=== PATIENT | female | born 1990 | race Two or more races ===

== ENCOUNTER 2024-12-07 22:37 | Emergency (ER) | payer MEDICAID, SELFPAY ==
[2024-12-07 22:39] VITALS: BMI 29.0
[2024-12-07 23:56] VITALS: BP 134/75; PULSE 100; RESP 20; TEMP 37.3; O2SAT 99
--- NOTE | 2024-12-08 00:15 | PD.EDRME ---
Rapid Medical Screening Exam RME Arrival date/time: 12/07/24 22:37 34F with history of breast cancer w/ mets to stomach and liver presents to ED with several days of ab/flank pain, hematuria/dysuria, and bloody N/V. Patient's oncologists are in [place] as she recently moved to [place] from there. Chief Complaint: Abdominal Pain Vital signs: Vital Signs Temperature 99.1 F 12/07/24 23:56 Pulse Rate 100 12/07/24 23:56 Respiratory Rate 20 12/07/24 23:56 Blood Pressure 134/75 H 12/07/24 23:56 Pulse Oximetry (%) 99 12/07/24 23:56 Oxygen Delivery Method Room Air 12/07/24 23:56
[2024-12-08 00:22] VITALS: BP 113/72; TEMP 36.8; O2SAT 99
--- NOTE | 2024-12-08 00:39 | EDNOTE_ITS ---
ED Abdominal Pain RME/HPI General Chief Complaint: Abdominal Pain Stated complaint: VOMTIING AND BLOOD IN URINE, HX STOMACH CA Time seen by provider: 12/08/24 00:37 Arrival date/time: 12/07/24 22:37 RME / HPI RME / HPI narrative: 12/07/24 22:37 34F with history of breast cancer w/ mets to stomach and liver presents to ED with several days of ab/flank pain, hematuria/dysuria, and bloody N/V. Patient's oncologists are in [place] as she recently moved to [place] from there. --------- Dr. Garza?s Main ED Evaluation: 34yo female with a history of breast CA w/ mets to the stomach and ovaries s/p hysterectomy on chemotherapy, PE 2 years ago presents to the ED for a chief complaint of hematemesis. Patient states she had 7-8 episodes of hematemesis at home since this morning, describing it as blood clots. Patient reports associated mild hematuria (is unsure if it's due to wiping too hard or not), shortness of breath, generalized weakness, lower abdominal pain, and lower back pain. Patient currently rates her pain a 9 out of 10 in severity. Patient denies any fever, chills, sweating, diarrhea, constipation or any otehr associated symptoms. Oncologist is at [facility]. Related Data Allergies Allergy/AdvReac Type Severity Reaction Status Date / Time iodine Allergy Verified 12/08/24 00:59 ketorolac (From Toradol) Allergy Verified 12/08/24 00:59 latex Allergy Verified 12/08/24 00:59 metoclopramide (From Reglan) Allergy Verified 12/08/24 01:01 ondansetron Allergy Verified 12/08/24 00:59 tramadol Allergy Verified 12/08/24 00:59 Review of Systems Review of Systems Systems Reviewed: All systems reviewed, normal except as documented Past Medical History Social History SMOKING STATUS: Never smoker ED Exam Narrative Physical exam: GENERAL APPEARANCE: alert and oriented x 4, well-developed, well-nourished, no acute distress VITALS: All vitals were reviewed and the pulse ox is 99% on room air, which is normal according to my interpretation. HEENT: Normocephalic, atraumatic; pupils equal, round, reactive to light; EOMI; mucous membranes pink, moist; oropharynx clear NECK: Supple LUNGS: CTABL; no wheezes, no rales, no rhonchi HEART: Regular rate, regular rhythm; normal S1, S2; no murmurs ABDOMEN: non distended; normal BS; soft, no tenderness, no guarding, no rebound; no masses, no organomegaly, no hernia BACK: no CVA tenderness EXTREMITIES: atraumatic; no edema NEUROLOGIC: awake; alert and oriented x4; cranial nerves II-XII grossly intact; no focal sensory or motor deficits PSYCHIATRIC: appropriate mood and affect SKIN: warm, dry, normal color; no rashes Course Quality Measures none Orders Category Date Time Status CT Screening NOW Care 12/08/24 01:20 Active Director Oracle Database NOW Care 12/08/24 01:16 Active Continuous Pulse Oximetry NOW Care 12/08/24 01:16 Active Insert IV NOW Care 12/08/24 00:[address] angio chest abdomen pelvis Stat Exams 12/08/24 01:19 Taken Blood Culture (Lab) Stat Lab 12/08/24 00:33 Received CBC Stat Lab 12/08/24 00:33 Completed CMP [Comprehensive Metabolic Panel] Stat Lab 12/08/24 00:33 Completed HCG Qualitative,Urine Stat Lab 12/08/24 00:14 Ordered Lactate (Lactic Acid) Stat Lab 12/08/24 00:33 Completed Lipase Stat Lab 12/08/24 00:33 Completed Procalcitonin Stat Lab 12/08/24 00:33 Completed UA [Urinalysis] Stat Lab 12/08/24 00:14 Ordered Urine Culture Stat Lab 12/08/24 00:14 Ordered DiphenhydrAMINE INJ [Benadryl Inj] Med 12/08/24 01:00 Discontinued 25 mg IVP X1 ONE MethylPREDNISolone. [SoluMEDROL Inj] Med 12/08/24 01:14 Discontinued 40 mg IVP X1 ONE MethylPREDNISolone.* [SoluMEDROL Inj] Med 12/08/24 01:17 Discontinued 125 mg IVP X1 ONE Morphine Inj Med 12/08/24 02:20 Discontinued 5 mg IVP Q30M PRN Morphine Inj Med 12/08/24 00:14 Discontinued 5 mg IVP X1 ONE Ondansetron Inj [Zofran Inj] Med 12/08/24 00:14 Discontinued 4 mg IV X1 ONE Pantoprazole Inj [Protonix Inj] Med 12/08/24 00:14 Discontinued 40 mg IVP X1 ONE Pantoprazole Inj [Protonix Inj] Med 12/08/24 01:14 Discontinued 40 mg IVP X1 ONE Pantoprazole/Ns 80Mg IV Premix [Protonix/NS 80mg IV Med 12/08/24 01:16 D iscontinued Premix] 80 mg in 100 ml IV X1 Pantoprazole/Ns 80Mg IV Premix [Protonix/NS 80mg IV Med 12/08/24 03:49 Active Premix] 80 mg in 100 ml IV X1 Sodium Chloride 0.9% 1000 ml [Ns] 1,000 ml Med 12/08/24 00:14 Discontinued IV 999 mls/hr Vital Signs Vital signs: Vital Signs Temperature 99.1 F 12/07/24 23:56 Pulse Rate 100 12/07/24 23:56 Respiratory Rate 20 12/07/24 23:56 Blood Pressure 134/75 H 12/07/24 23:56 Pulse Oximetry (%) 99 12/07/24 23:56 Oxygen Delivery Method Room Air 12/07/24 23:56 Abdominal Pain MDM MDM Narrative MDM Narrative:: Scribe Attestation: 12/08/24 - Kimberly Gardner am scribing for and in the presence of Dr. Garza. Patient came in with her own IV already in place as prescribed by her oncologist, . Patient states she receives IV fluids at home on a regular basis due to her being dehydrated 2/2 chemotherapy. Solumedrol and Benadryl ordered due to the patient allergic to IV contrast. Of note, patient has not had any emetic episodes here in the ED. 0400: Patient is being treated for her pain. She is currently on a Protonix drip. Patient gave multiple staff members different stories. When asked, patient was unable to provide the name of her oncologist. Per registration staff, patient provided the name of a PCP, but patient denied that. She got up and left. Patient data External records reviewed:: [facility] previous records (Per chart review, patient has no previous ED visits or admissions to this facility.) Clinical information provided by:: patient Social determinants that could affect healthcare access:: none Patient has the following chronic illnesses:: breast CA w/ mets to the stomach and ovaries, PE 2 years ago How is presenting disease/condition affected by chronic disease/condition?: caused by Evaluation data The following diagnostics were reviewed and interpreted by me:: lab results and radiology exam(s) Lab and/or radiology exams considered but not ordered:: none Interpretation Summary: WBC count is normal, HnH is 9.4/28.8, Electrolytes are normal, Lipase is normal, Lactic Acid is normal, Procalcitonin is normal, according to my interpretation. Teler[place] Preliminary Report Draft Patient: JAMAL SAINI [facility] Record#: [id number] Birthdate: 1990 Age/Sex: 34 / F Location: [facility] Attending Dr: Ordering Physician: Date of Service: Procedure(s): Accession Number(s): cc: ~ CT angiogram of the chest, abdomen and pelvis with intravenous contrast (axial images with coronal and sagittal reconstructions) Clinical history: Vomiting blood Findings: There is no filling defect in the pulmonary artery divisions to suggest pulmonary thromboembolism. No pericardial effusion is seen. The heart size is normal. Main pulmonary artery caliber is normal. Mild mediastinal adenopathy. No aortic aneurysm or dissection. The lungs are clear. No pleural effusion. No pneumothorax. No acute osseous process. The chest wall is unremarkable. Right mastectomy. Inferior vena cava filter. Liver is enlarged, 21 cm long. Spleen is enlarged, 12.6 cm long. Gallbladder, adrenal glands, pancreas and kidneys are unremarkable. The appendix is normal, best seen on image 202. The urinary bladder is normal. There is no adnexal cyst or mass. No free intraperitoneal air or fluid. Bowel caliber is normal. The abdominal wall is unremarkable. The stomach is nondistended and wall thickening cannot be excluded. Celiac, superior and inferior mesenteric, bilateral renal and iliac arteries are unremarkable. No gastrointestinal hemorrhage is identified. Impression: Normal arteriogram No hemorrhage is identified. Cannot exclude gastritis. Mild hepatosplenomegaly. Report Electronically Signed By: Pasquale Cardoza 12/08/2024 3:42:28 AM Medications / Prescriptions Medications or Prescriptions considered but not ordered:: none Medication administrations:: Medication Administration History Pantoprazole Sodium (Protonix/Ns 80mg Iv Premix) 80 mg in 100 mls @ 10 mls/hr IV X1 ONE Stop: 12/08/24 13:48 Last Admin: 12/08/24 04:39 Dose: 10 mls/hr Documented By: TERE Discontinued Medications Diphenhydramine HCl (Diphenhydramine Inj 50 Mg/Ml Vial) 25 mg IVP X1 ONE Stop: 12/08/24 01:01 Last Admin: 12/08/24 01:55 Dose: 25 mg Documented By: TERE Sodium Chloride (Ns) 1,000 mls @ 999 mls/hr IV .Q1H1M ONE Stop: 12/08/24 01:14 Last Admin: 12/08/24 02:20 Dose: 999 mls/hr Documented By: TERE Pantoprazole Sodium (Protonix/Ns 80mg Iv Premix) 80 mg in 100 mls @ 400 mls/hr IV X1 ONE Stop: 12/08/24 01:30 Last Admin: 12/08/24 04:17 Dose: Not Given Documented By: TERE Non-Admin Reason: Duplicate Medication on eMAR Methylprednisolone Sodium Succinate (Methylprednisolone Sod Succ 40 Mg Vial) 40 mg IVP X1 ONE Stop: 12/08/24 01:15 Last Admin: 12/08/24 02:37 Dose: Not Given Documented By: TERE Non-Admin Reason: Duplicate Medication on eMAR Methylprednisolone Sodium Succinate (Methylprednisolone Sod Succ 62.5 Mg/Ml 2ml Vial) 125 mg IVP X1 ONE Stop: 12/08/24 01:18 Last Admin: 12/08/24 02:15 Dose: 125 mg Documented By: TERE Morphine Sulfate (Morphine Sulf Inj 10 Mg/Ml Vial) 5 mg IVP X1 ONE Stop: 12/08/24 00:15 Last Admin: 12/08/24 01:56 Dose: 5 mg Documented By: TERE Morphine Sulfate (Morphine Sulf Inj 10 Mg/Ml Vial) 5 mg IVP Q30M PRN PRN Reason: PAIN Last Admin: 12/08/24 04:37 Dose: 5 mg Documented By: Admin: 12/08/24 03:37 Dose: 5 mg Documented By: Admin: 12/08/24 02:52 Dose: 5 mg Documented By: TERE Ondansetron HCl (Ondansetron Inj 2 Mg/Ml Inj 2 Ml) 4 mg IV X1 ONE; Protocol Stop: 12/08/24 00:15 Last Admin: 12/08/24 02:33 Dose: 4 mg Documented By: TERE Pantoprazole Sodium (Pantoprazole Inj 40 Mg Vial) 40 mg IVP X1 ONE Stop: 12/08/24 00:15 Last Admin: 12/08/24 01:58 Dose: 40 mg Documented By: TERE Pantoprazole Sodium (Pantoprazole Inj 40 Mg Vial) 40 mg IVP X1 ONE Stop: 12/08/24 01:15 Last Admin: 12/08/24 02:00 Dose: 40 mg Documented By: TERE see above Consultations Consultation(s) initiated? (list below): No Diagnosis Differential diagnosis abdominal pain: other (GI bleed, dehydration, electrolyte abnormality, anemia) Most likely diagnosis given after review of the tests above:: eloped Admission Indicated Admission indicated?: not indicated Admission Request Was there a request for admission?: No Disposition Plan Disposition Plan: other (specify) (Patient eloped. ) Discharge Plan Plan Patient Disposition: Elopement Prescriptions/Referrals Referrals: Anastasia Sanchez FNP [Primary Care Provider] - In 1 week Problem List Clinical Impression: Vomiting Patient/Caregiver Discharge Instructions Print Language: [place]
[2024-12-08 00:53] LABS: Lactate (Lactic Acid) 1.7 mMol/L (0.4-2.0)
[2024-12-08 01:02] VITALS: BP 118/77; RESP 18; O2SAT 98
[2024-12-08 01:11] LABS: Basophils % (Auto) 1 % (0-2.5); Eosinophils % (Auto) 0 % (0-10); Hematocrit 28.8 % (36.0-46.0); Hemoglobin 9.4 g/dL (12.0-16.0); Immature Granulocytes % (Auto) 1 % (0-0); Immature Granulocytes Auto 0.04 Thou/mm3 (0.00-0.00); Lymphocytes # (Auto) 1.5 Thou/mm3 (1.0-4.8); Lymphocytes % (Auto) 21 % (10-50); Mean Corpuscular HGB Conc 32.6 g/dl (31.0-37.0); Mean Corpuscular Hemoglobin 23.9 pg (25.0-35.0); Mean Corpuscular Volume 73 fL (80-100); Monocytes # (Auto) 0.6 Thou/mm3 (0.0-0.8); Monocytes % (Auto) 9 % (0-12); Neutrophils # (Auto) 4.9 Thou/mm3 (1.8-7.7); Neutrophils % (Auto) 69 % (37-80); Nucleated Red Blood Cell % 0 /100 WBC (0); Platelet Count 247 Thou/mm3 (140-440); RDW Standard Deviation 39.8 fL (36.4-46.3); Red Blood Count 3.93 Miln/mm3 (4.00-5.20); White Blood Count 7.1 Thou/mm3 (3.6-11.0)
--- NOTE | 2024-12-08 01:19 | XR_ITS ---
Examination: CTA chest, with intravenous contrast. CTA abdomen, with intravenous contrast. CTA pelvis, with intravenous contrast. 2-D sagittal and coronal reconstructions. 3-D reconstructions. Date and time of exam: December 08, 2024 at 0226 hours INDICATIONS: Ovarian carcinoma diagnosis, chest pain vomiting abdominal pain beginning 3 days ago CTDI vol (mgy) 13.4 DLP (MGycm) 961 Technique: Multiple CTA images, 2.0 mm slice thickness, obtained chest, abdomen, pelvis, with the high-resolution 64 slice scanner. 100 cc Isovue 370 is administered intravenously. Sagittal and coronal 2-D reconstructions are obtained. 3-D reconstructions, angiographic images are obtained. 3-D postprocessing, including vascular maximum intensity projections. Low dose protocols were performed. One or more of the following dose reduction techniques were used; automated exposure control, adjustment of the mA and/or KV according to patient size, use of iterative reconstruction technique. Findings: No thoracic aortic aneurysm dilatation No pulmonary artery filling defects. No paratracheal tracheobronchial or bronchopulmonary adenopathy No pneumonia pulmonary edema or pleural disease Mild vascular congestion. Right mastectomy Diffuse fatty infiltration throughout the liver with hepatomegaly 22 cm No gallstones No pancreatic or adrenal mass No renal or ureteral calculi IVC filter. Aorta normal size No abdominal or pelvic lymphadenopathy Normal appendix No bowel obstruction Urinary bladder intact IMPRESSION: Negative for pulmonary artery emboli No pneumonia pulmonary edema or pleural disease Mild vascular congestion Significant hepatomegaly with fatty infiltration No abdominal or pelvic lymphadenopathy
[2024-12-08 01:24] LABS: Alanine Aminotransferase 89 U/L (10-49); Albumin, Serum 4.1 gm/dL (3.5-5.0); Albumin/Globulin Ratio 1.1 (1.2-2.2); Alkaline Phosphatase 124 U/L (46-116); Anion Gap 8 (7-16); Aspartate Amino Transferase 102 U/L (0-34); BUN/Creatinine Ratio 10 Ratio (12-20); Bilirubin,Total 0.3 mg/dL (0.3-1.2); Blood Urea Nitrogen 8 mg/dL (9-23); Carbon Dioxide 21.8 mMol/L (20.0-31.0); Chloride 109 mMol/L (98-107); Creatinine (Component) 0.8 mg/dL (0.6-1.3); Estimated Creatinine Clearance 108.2 mL/min (>60); Globulin 3.6 gm/dL (2.3-3.5); Glucose 117 mg/dL (74-106); Lipase 30 U/L (12-53); Osmolality,Calculated 276 (275-295); Potassium 3.6 mMol/L (3.4-5.1); Procalcitonin 0.14 ng/ml (0.0-0.49); Sodium 139 mMol/L (136-145); Total Protein 7.7 gm/dL (5.7-8.2); eGFR > 60 See Note
[2024-12-08 01:45] VITALS: BP 103/84; PULSE 86; RESP 18; O2SAT 99
[2024-12-08] MEDS: DiphenhydrAMINE INJ 50 MG/ML VIAL 25 MG IVP (01:55)
[2024-12-08] MEDS: MORPHINE SULF INJ 10 MG/ML VIAL 5 MG IVP ×4 (01:56→04:37)
[2024-12-08] MEDS: PANTOPRAZOLE INJ 40 MG VIAL IVP ×2 (01:58→02:00)
[2024-12-08 02:00] VITALS: BP 109/80; PULSE 80; RESP 16; O2SAT 97
[2024-12-08] MEDS: MethylPREDNISolone SOD SUCC 62.5 MG/ML 2ML VIAL 125 MG IVP (02:15)
[2024-12-08] MEDS: SODIUM CHLORIDE 0.9% 1000 ML 1,000 ML 999 ML IV (02:20)
[2024-12-08] MEDS: ONDANSETRON INJ 2 MG/ML INJ 2 ML 4 MG IV (02:33)
[2024-12-08 03:30] VITALS: BP 118/77; PULSE 84; RESP 18; O2SAT 99
--- NOTE | 2024-12-08 03:43 | PRELIM_ITS ---
CT angiogram of the chest, abdomen and pelvis with intravenous contrast (axial images with coronal and sagittal reconstructions) Clinical history: Vomiting blood Findings: There is no filling defect in the pulmonary artery divisions to suggest pulmonary thromboembolism. No pericardial effusion is seen. The heart size is normal. Main pulmonary artery caliber is normal. Mild mediastinal adenopathy. No aortic aneurysm or dissection. The lungs are clear. No pleural effusion. No pneumothorax. No acute osseous process. The chest wall is unremarkable. Right mastectomy. Inferior vena cava filter. Liver is enlarged, 21 cm long. Spleen is enlarged, 12.6 cm long. Gallbladder, adrenal glands, pancreas and kidneys are unremarkable. The appendix is normal, best seen on image 202. The urinary bladder is normal. There is no adnexal cyst or mass. No free intraperitoneal air or fluid. Bowel caliber is normal. The abdominal wall is unremarkable. The stomach is nondistended and wall thickening cannot be excluded. Celiac, superior and inferior mesenteric, bilateral renal and iliac arteries are unremarkable. No gastrointestinal hemorrhage is identified. Impression: Normal arteriogram No hemorrhage is identified. Cannot exclude gastritis. Mild hepatosplenomegaly. Report Electronically Signed By: Pasquale Cardoza 12/08/2024 3:42:28 AM [EST]
[2024-12-08] MEDS: PANTOPRAZOLE/NS 80MG IV PREMIX 80 MG/100 ML BAG 10 MG IV (04:39)
[2024-12-08 05:30] VITALS: BP 120/82; RESP 18; O2SAT 98
--- NOTE | 2024-12-08 06:00 | PC.NURSE ---
PT SEEN LEAVING THE ER AT THIS TIME.
== END 2024-12-08 06:26 | disposition left against medical advice (07) ==
PROVIDERS: Physician Assistant; Emergency Provider Emergency Medicine; PCP Registered Nurse
DX: K92.0 Hematemesis (principal); R31.9 Hematuria, unspecified; R10.30 Lower abdominal pain, unspecified
CPT/HCPCS: 36415; 71275; 74174; 80053; 81001; 81025; 83605; 83690; 84145; 85025; 87040; 87086; 96361; 96365; 99285; A4649; J1200; J2270; J2405; J2470; J2919; J3490; J7030; Q9967